=== PATIENT | male | born 1940 | race Two or more races ===

== ENCOUNTER 2025-08-21 21:38 | Emergency (ER) | payer OTHER ==
[~2025-08-21] VITALS: Ht 170.2 cm; Wt 56.7 kg
[2025-08-21 22:31] LABS: PLATELET COUNT (AUTO) 207 K/uL (150-450); RED BLOOD CELL COUNT(AUTO) 3.60 MIL/uL (4.5-6.0); RED CELL DISTRIBUTION WIDTH 14.4 % (11.5-15.0); WHITE BLOOD COUNT (AUTO) 7.1 K/uL (4.3-11.0)
[2025-08-21 22:38] LABS: CALCIUM, SERUM 10.3 mg/dL (8.5-10.1); CREATININE 1.0 mg/dL (0.6-1.3); SODIUM SERUM 137.0 mmol/L (136-145); UREA NITROGEN, BLOOD 16.0 mg/dL (7-18)
[2025-08-21 22:44] LABS: ASPARTATE AMINOTRANSFERASE 69.0 U/L (15-37); TOTAL PROTEIN, SERUM 6.5 g/dL (6.4-8.2)
[2025-08-21] MEDS: IV LR 1000 ML 1,000 ML IV ONE (23:05)
[2025-08-22] MEDS ORDERED: MINERAL OIL 133 ML (PYXIS) 1 EA ENEMA RC ONE (00:01)
[2025-08-22] MEDS: MINERAL OIL 133 ML (PYXIS) 1 EA ENEMA RC ONE (00:30)
[2025-08-22 01:52] VITALS: BP 125/71; TEMP 98; O2SAT 94
== END 2025-08-22 01:53 | disposition home or self-care (01) ==
LOC: ER 21:39
DX: K59.00 Constipation, unspecified (principal); I10 Essential (primary) hypertension; I44.0 Atrioventricular block, first degree; Z88.5 Allergy status to narcotic agent; Z96.611 Presence of right artificial shoulder joint
CPT/HCPCS: 99285; 71045; 93005 ×2; 85025; 80048; 83690; 80076; 36415; 84484; J7120 ×2